=== PATIENT | male | born 1995 | race Two or more races ===

== ENCOUNTER 2017-03-12 19:33 | Emergency (ER) ==
[2017-03-12 19:37] VITALS: BP 141/95; TEMP 98.8; BMI 42.8
--- NOTE | 2017-03-12 19:55 | ED.PDOC ---
General ED Provider: Dr. ANAM MACIAS-ER Chief Complaint: Ankle Pain/Injury Stated Complaint: i twisted my ankle Time Seen by Physician: 19:53 Mode of Arrival: Walk-In Information Source: Patient, Family Exam Limitations: No limitations Nursing and Triage Documentation Reviewed and Agree: Yes Musculoskeletal Complaint Exam - Ankle/Foot Complaint/Exam Location of Injury: Reports: Right, Ankle Mechanism of Injury: Reports: Trauma Onset/Duration: 24hrs Symptoms Are: Reports: Still present Onset of Pain: Reports: Immediate Initial Severity: Mild Current Severity: Mild Location: Reports: Discrete (right ankle) Character: Reports: Dull, Aching, Throbbing Aggravating: Reports: Movement, Weight bearing, Prolonged standing Able to Bear Weight: Yes Associated Signs and Symptoms: Reports: Swelling, Bruising. Denies: Redness, Fever, Weakness, Numbness, Tingling Gout Risk Factors: Reports: Male Lower Extremity Findings: Present: Swelling, Ecchymosis, Tenderness, Limited range of motion Achilles Tendon Abnormality: No Tenderness: Present: Lateral malleolus Limited Range of Motion: Present: Inversion, Eversion, Dorsiflexion, Plantarflexion Differential Diagnosis: Sprain, Strain Review of Systems - Review Of Systems Constitutional: Reports: No symptoms Eyes: Reports: No symptoms Ears, Nose, Mouth, Throat: Reports: No symptoms Respiratory: Reports: No symptoms Cardiac: Reports: No symptoms GI: Reports: No symptoms : Reports: No symptoms Musculoskeletal: Reports: Joint pain, Joint swelling, Muscle pain Skin: Reports: No symptoms Neurological: Reports: No symptoms Endocrine: Reports: No symptoms Hematologic/Lymphatic: Reports: No symptoms All Other Systems: Reviewed and Negative Past Medical History - Past Medical History Previously Healthy: Yes Endocrine: Reports: None Cardiovascular: Reports: None Respiratory: Reports: None Hematological: Reports: None Gastrointestinal: Reports: None Genitourinary: Reports: None Neuro/Psych: Reports: None Musculoskeletal: Reports: None Cancer: Reports: None - Surgical History General Surgical History: Reports: Unknown - Family History Family History: Reports: Unknown - Social History Smoking Status: Current every day smoker, Light tobacco smoker Hx Substance Use: No Alcohol Screening: Occasionally Lives: With family - Immunizations Tetanus Shot up to Date: No Physical Exam - Physical Exam Appearance: Well-appearing, No pain distress, Well-nourished Pain Distress: Mild Eyes: NEVA ENT: Ears normal, Nose normal, Oropharynx normal Neck: Supple Respiratory: Airway patent Cardiovascular: RRR, Pulses normal, No rub, No murmur GI/: Soft, Nontender, No masses, Bowel sounds normal, No Organomegaly Musculoskeletal: Limited ROM, Edema Skin: Warm, Dry, Normal color Neurological: Sensation intact, Motor intact, Reflexes intact, Cranial nerves intact, Alert, Oriented, Unresponsive Psychiatric: Affect appropriate, Mood appropriate Interpretation - Radiology Interpretation Radiology Interpretation By: ED Physician Radiology Results: Negative Critical Care Note - Critical Care Note Total Time (mins): 0 Course - Course Orders, Labs, Meds: Orders Category Date Time Status ANKLE, RIGHT MIN 3 VIEWS Stat RADS 03/12/17 19:39 Taken Vital Signs: Temp Pulse Resp BP Pulse Ox 03/12/17 19:34 98.8 F 101 H 16 141/95 H 95 Departure - Departure Time of Disposition: 19:55 Disposition: HOME SELF-CARE Discharge Problem: Ankle sprain Instructions: Ankle Sprain (ED) Condition: Good Pt referred to PMD for follow-up: Yes Additional Instructions: stay in air cast and use crutches--motrin 600mg tid prn pain #21--f/u with pcp next week Allergies/Adverse Reactions: Allergies No Known Allergies Allergy (Verified 03/12/17 19:37) Home Medications: Ambulatory Orders 1 [No Reported Medications] 01/19/14 Disposition Discussed With: Patient, Family
--- NOTE | 2017-03-12 20:06 | DI ---
EXAM: Right ankle, three views, 03/12/2017 HISTORY: Ankle injury COMPARISON: None. FINDINGS / IMPRESSION: Soft tissue swelling along the lateral aspect of the ankle The underlying osseous structures appear intact. No evidence of fracture or dislocation No acute osseous abnormality.
== END 2017-03-12 20:10 | disposition home or self-care (01) ==
LOC: ED 19:33
DX: S93.401A Sprain of unspecified ligament of right ankle, initial encounter (principal); X50.1XXA Overexertion from prolonged static or awkward postures, initial encounter; F17.210 Nicotine dependence, cigarettes, uncomplicated
CPT/HCPCS: 99283

== ENCOUNTER 2017-08-05 09:24 | Emergency (ER) ==
[2017-08-05 09:34] VITALS: BP 152/84; TEMP 102; BMI 44.3
--- NOTE | 2017-08-05 10:00 | ED.PDOC ---
General ED Provider: Dr. ANAM PHILLIPS Chief Complaint: Non-specific Complaint Stated Complaint: Cough, congestion with nausea and vomiting. Onset for past 3 days. Time Seen by Physician: 09:45 Mode of Arrival: Walk-In Information Source: Patient Exam Limitations: No limitations Primary Care Provider: ANAM MACIAS Nursing and Triage Documentation Reviewed and Agree: Yes Reviewed sepsis parameters & appropriate labs ordered?: Yes System Inflammatory Response Syndrome: Temp 101F or Greater Sepsis Protocol: For patient's 13 years and over: Temp is 96.8 and below OR 101 and greater Pulse >90 BPM Resp >20/minute Acutely Altered Mental Status Are patient's symptoms suggestive of a new infection, such as: -Pneumonia -Skin, Soft Tissue -Endocarditis -UTI -Bone, Joint Infection -Implantable Device -Acute Abdominal Infection -Wound Infection -Meningitis -Blood Stream Catheter Infection -Unknown System Inflammatory Response Syndrome: Not Applicable (Wearing sweater upon arrival) Respiratory Complaint Exam - Respiratory Complaint/Exam Symptoms Are: Still present Timing: Intermittent Initial Severity: Moderate Current Severity: Mild Location: Throat, Chest Character: Reports: Non-productive cough, Dry cough Aggravating: Reports: None Alleviating: Reports: None Associated Signs and Symptoms: Reports: Fever, Chills, Vomiting, Sore throat, Decreased oral intake, Increased thirst. Denies: Rapid breathing, Dyspnea, Chest pain, Wheezing, Hemoptysis, Calf swelling, Nasal congestion, Sinus discomfort, Weight loss Related History: Denies: Similar episode History of Healthcare-Acquired Pneumonia: No Related Surgical History: Reports: None Pulmonary Embolism Risk Factors: None Cardiac Risk Factors: Reports: None Pseudomonas Risk Factors: Reports: None Tuberculosis Risk Factors: Reports: None Status Asthmaticus Risk Factors: Reports: None Home Oxygen Use: Yes Home Peak Flow: Recent personal best Recent Stress Test: Yes Recent Echo/LV Function: Yes Current Antibiotic Use: Yes Current Asthma Medication Use: Yes Respiratory Distress: None Inadequate Respiratory Effort: No Dysphagia Present: Yes Stridor Present: No JVD Present: No Accessory Muscle Use: No Retractions: Not Present Diminished Breath Sounds: No Sinus Tenderness: None Grunting Respirations: No Kussmaul Respirations: No Differential Diagnoses: Airway Obstruction Review of Systems - Review Of Systems Constitutional: Reports: Chills, Fever Eyes: Reports: No symptoms Ears, Nose, Mouth, Throat: Reports: Throat pain. Denies: Ear pain, Mouth swelling, Throat swelling Respiratory: Reports: Cough. Denies: Short of air, Wheezing Cardiac: Reports: No symptoms GI: Reports: Diarrhea (Diarrhea several days ago), Nausea, Vomiting : Denies: No symptoms Musculoskeletal: Reports: No symptoms Skin: Reports: No symptoms Neurological: Reports: No symptoms Endocrine: Reports: No symptoms Hematologic/Lymphatic: Reports: No symptoms All Other Systems: Reviewed and Negative Past Medical History - Past Medical History Previously Healthy: Yes Endocrine: Reports: None Cardiovascular: Reports: None Respiratory: Reports: None Hematological: Reports: None Gastrointestinal: Reports: None Genitourinary: Reports: None Neuro/Psych: Reports: None Musculoskeletal: Reports: None Cancer: Reports: None - Surgical History General Surgical History: Reports: Unknown - Family History Family History: Reports: Unknown - Social History Smoking Status: Current every day smoker, Light tobacco smoker Hx Substance Use: No Alcohol Screening: Occasionally - Immunizations Tetanus Shot up to Date: No Physical Exam - Physical Exam Appearance: Ill-appearing Ill-appearing: Mild Pain Distress: None Eyes: NEVA, EOMI, Conjunctiva clear ENT: Ears normal, Nose normal, Oropharynx normal Respiratory: Airway patent, Breath sounds clear, Breath sounds equal Cardiovascular: RRR GI/: Soft, Nontender Musculoskeletal: Normal strength, ROM intact, No edema, No calf tenderness Skin: Warm, Dry, Normal color Neurological: Sensation intact, Motor intact, Reflexes intact, Cranial nerves intact, Alert, Oriented Psychiatric: Affect appropriate Critical Care Note - Critical Care Note Total Time (mins): 0 Course - Course Hematology/Chemistry: 08/05/17 10:19 08/05/17 10:19 Orders, Labs, Meds: Lab Review 08/05/17 08/05/17 08/05/17 09:30 10:19 10:19 WBC 12.38 H RBC 5.22 Hgb 15.6 Hct 45.0 MCV 86.2 MCH 29.9 MCHC 34.7 RDW Coeff of [place] 12.3 Plt Count 171 Immature Gran % (Auto) 0.3 Neut % (Auto) 79.5 Lymph % (Auto) 10.0 [place] % (Auto) 9.8 Eos % (Auto) 0.2 Baso % (Auto) 0.2 Immature Gran # (Auto) 0.0 Neut # 9.8 H Lymph # 1.2 [place] # 1.2 Eos # 0.0 Baso # 0.0 Sodium 134 L Potassium 3.8 Chloride 101 Carbon Dioxide 24 Anion Gap 12.8 BUN 9 Creatinine 0.96 Estimated GFR (MDRD) 96.00 BUN/Creatinine Ratio 9.37 Glucose 102 H Calcium 9.1 Total Bilirubin 0.5 AST 20 ALT 20 Alkaline Phosphatase 76 Total Protein 7.9 Albumin 3.7 Globulin 4.2 Albumin/Globulin Ratio 0.88 Influenza A (Rapid) Positive by naat H Influenza B (Rapid) Negative by naat Orders Category Date Time Status CBC W/ AUTO DIFF Stat LAB 08/05/17 10:19 Completed CMP [COMPREHENSIVE METABOLIC PANEL] Stat LAB 08/05/17 10:19 Completed FLU A & B RAPID TEST [MOLECULAR FLU A/B] Stat LAB 08/05/17 09:30 Completed RAPID STREP SCREEN [MOLECULAR GROUP A STREP] Stat LAB 08/05/17 09:30 Completed Acetaminophen [Tylenol] MEDS 08/05/17 10:06 Discontinued 325 mg PO ONCE STA Ondansetron [Zofran Odt] MEDS 08/05/17 10:05 Discontinued 4 mg PO ONCE STA Medications Discontinued Medications Generic Name Dose Route Start Last Admin Trade Name Thuy PRN Reason Stop Dose Admin Acetaminophen 325 mg 08/05/17 10:06 08/05/17 10:14 Tylenol PO 08/05/17 10:07 325 mg ONCE STA Administration Ondansetron HCl 4 mg 08/05/17 10:05 08/05/17 10:14 Zofran Odt PO 08/05/17 10:06 4 mg ONCE STA Administration Vital Signs: Temp Pulse Resp BP Pulse Ox 08/05/17 09:25 102 F H 60 18 152/84 H 100 Departure - Departure Time of Disposition: 11:15 Disposition: HOME SELF-CARE Discharge Problem: Influenza A Instructions: Influenza (ED) Condition: Good Pt referred to PMD for follow-up: Yes (7-10 days) Additional Instructions: Monitor Temperature every 4 hours and take Ibuprofen or Tylenol as needed for temperature elevation above 101 degrees Allergies/Adverse Reactions: Allergies No Known Allergies Allergy (Verified 08/05/17 09:29) Home Medications: Ambulatory Orders Ibuprofen 400 mg PO Q6HR #40 tablet 08/05/17 Ondansetron [Zofran Odt] 4 mg PO Q8H #10 tab.rapdis 08/05/17
[2017-08-05] MEDS ORDERED: ZOFRAN ODT PO STA (10:05)
[2017-08-05] MEDS ORDERED: TYLENOL PO STA (10:06)
== END 2017-08-05 11:25 | disposition home or self-care (01) ==
LOC: ED 09:24
DX: J09.X2 Influenza due to identified novel influenza A virus with other respiratory manifestations (principal); F17.210 Nicotine dependence, cigarettes, uncomplicated
CPT/HCPCS: 36415; 80053; 85025; 87502; 87651; 99283

== ENCOUNTER 2018-03-23 05:40 | Emergency (ER) ==
[2018-03-23 05:54] VITALS: BP 163/90; TEMP 97.9; BMI 44.9
--- NOTE | 2018-03-23 06:23 | ED.PDOC ---
General ED Provider: Dr. ALFREAD SCHULER Chief Complaint: Abscess Stated Complaint: swelling and redness in the left butt cheek, increased in size , hurting, no drainage at this time Time Seen by Physician: 06:19 Mode of Arrival: Walk-In Information Source: Patient Primary Care Provider: ANAM MACIAS Nursing and Triage Documentation Reviewed and Agree: Yes Does patient meet sepsis criteria?: No If yes, has appropriate treatment been initiated?: No System Inflammatory Response Syndrome: Not Applicable Sepsis Protocol: For patient's 13 years and over: Temp is 96.8 and below OR 101 and greater Pulse >90 BPM Resp >20/minute Acutely Altered Mental Status Are patient's symptoms suggestive of a new infection, such as: -Pneumonia -Skin, Soft Tissue -Endocarditis -UTI -Bone, Joint Infection -Implantable Device -Acute Abdominal Infection -Wound Infection -Meningitis -Blood Stream Catheter Infection -Unknown Skin Complaint Exam - Skin/Soft Tissue Complaint/Exam Symptoms Are: Still present Timing: Constant Initial Severity: Mild Current Severity: Mild Character: Reports: Redness, Swelling, Raised, Painful Aggravating: Reports: Touch Alleviating: Reports: None Associated Signs and Symptoms: Reports: Fever, Tenderness Skin Findings: Present: Erythema, Induration Differential Diagnoses: Cellulitis Review of Systems - Review Of Systems Constitutional: Reports: No symptoms Eyes: Reports: No symptoms Ears, Nose, Mouth, Throat: Reports: No symptoms Respiratory: Reports: No symptoms Cardiac: Reports: No symptoms GI: Reports: No symptoms : Reports: No symptoms Musculoskeletal: Reports: No symptoms Skin: Reports: No symptoms Neurological: Reports: No symptoms Endocrine: Reports: No symptoms Hematologic/Lymphatic: Reports: No symptoms All Other Systems: Reviewed and Negative Past Medical History - Past Medical History Previously Healthy: Yes Endocrine: Reports: None Cardiovascular: Reports: None Respiratory: Reports: None Hematological: Reports: None Gastrointestinal: Reports: None Genitourinary: Reports: None Neuro/Psych: Reports: None Musculoskeletal: Reports: None Cancer: Reports: None - Surgical History General Surgical History: Reports: Unknown - Family History Family History: Reports: Unknown - Social History Smoking Status: Current every day smoker, Light tobacco smoker Smoking Cessation Counseling Time: > 3 min - 10 min Hx Substance Use: No Alcohol Screening: Occasionally - Immunizations Tetanus Shot up to Date: (UNKNOWN) Physical Exam - Physical Exam Appearance: Well-appearing, No pain distress, Well-nourished Eyes: NEVA, EOMI, Conjunctiva clear ENT: Ears normal, Nose normal, Oropharynx normal Respiratory: Airway patent, Breath sounds clear, Breath sounds equal, Respirations nonlabored Cardiovascular: RRR, Pulses normal, No rub, No murmur GI/: Soft, Nontender, No masses, Bowel sounds normal, No Organomegaly Musculoskeletal: Normal strength, ROM intact, No edema, No calf tenderness Skin: Warm (left butt cheek, redness swelling present 3/4 cm, no drainable abscess.), Dry, Normal color Neurological: Sensation intact, Motor intact, Reflexes intact, Cranial nerves intact, Alert, Oriented Psychiatric: Affect appropriate, Mood appropriate Critical Care Note - Critical Care Note Total Time (mins): 30 Course - Course Vital Signs: Temp Pulse Resp BP Pulse Ox 03/23/18 05:41 97.9 F 64 20 163/90 H 97 Departure - Departure Time of Disposition: 06:26 Disposition: HOME SELF-CARE Discharge Problem: Abscess Instructions: Abscess (ED) Condition: Stable Pt referred to PMD for follow-up: Yes IPMP verified?: No Additional Instructions: Tylenol prn Taking probiotics and yogurt. Prescriptions: Clindamycin HCl 300 mg PO TID #15 capsule Allergies/Adverse Reactions: Allergies No Known Allergies Allergy (Verified 03/23/18 05:50) Home Medications: Ambulatory Orders Clindamycin HCl 300 mg PO TID #15 capsule 03/23/18 Disposition Discussed With: Patient
[2018-03-23] MEDS ORDERED: CLEOCIN PO STA (06:24)
== END 2018-03-23 06:41 | disposition home or self-care (01) ==
LOC: ED 05:40
DX: L02.31 Cutaneous abscess of buttock (principal); F17.210 Nicotine dependence, cigarettes, uncomplicated
CPT/HCPCS: 99282